=== PATIENT | female | born 1985 | race Caucasian/White ===

== ENCOUNTER 2016-08-13 18:14 | Emergency (ER) | payer BC, OTHER ==
[~2016-08-13] VITALS: Ht 177.8 cm; Wt 57.5 kg
[2016-08-13] MEDS ORDERED: ONDANSETRON 2 MG/ML (Z0FRAN) 2 ML VIAL IV ONE (18:30)
[2016-08-13] MEDS ORDERED: SODIUM CHLORIDE FLUSH 10 ML SYR IV PRN (18:30)
[2016-08-13] MEDS ORDERED: SODIUM CHLORIDE FLUSH 3 ML SYR IV ONE (18:30)
[2016-08-13 19:05] LABS: MEAN CORPUSCULAR HEMOGLOBIN 30.1 PG (26.0-34.0); MEAN CORPUSCULAR HGB CONC 34.9 g/dL (31.0-37.0); MEAN CORPUSCULAR VOLUME 86 FL (80-100); PLATELET COUNT 194 10^3uL (150-450); WHITE BLOOD COUNT 9.95 10^3uL (4.0-11.0)
[2016-08-13] MEDS ORDERED: KETOROLAC 30 MG/ML (TORADOL) 1 ML VIAL IV ONE (19:15)
[2016-08-13 19:17] LABS: ALBUMIN 5.3 g/dL (3.4-5.0); ALKALINE PHOSPHATASE 158 U/L (38-126); AMYLASE* 83 U/L (25-115); ANION GAP 21.6 MEQ/L (3-15); BUN/CREATININE RATIO 17 (10-20); CALCULATED IONIZED CALCIUM 3.8 mg/dL (3.8-4.6); LIPASE* 71 U/L (23-300); TOTAL PROTEIN 9.5 g/dL (6.4-8.5)
[2016-08-13 19:19] LABS: BAND NEUTROPHILS % 1 % (0-6); EOSINOPHILS % 0 % (0-4); LYMPHOCYTES # 0.7 #; MONOCYTES # 0.4 #; MONOCYTES % 4 % (3-11); RBC MORPH NORMAL (NORMAL); SEGMENTED NEUTROPHILS % 88 % (51-67); TOTAL CELLS COUNTED 100
[2016-08-13 20:10] LABS: CLARITY,URINE Clear; COLOR,URINE Red; GLUCOSE, URINE (UA) Negative (Negative); LEUKOCYTE ESTERASE ,URINE Negative (Negative)
[2016-08-13 20:15] LABS: BILIRUBIN,URINE 3+ (Negative)
[2016-08-13 20:17] LABS: RBC,URINE >100 /HPF; URINE CENTRIFUGED VOLUME <10mL Unspun
[2016-08-13 20:18] LABS: AMPHETAMINE SCREEN, URINE Negative (Negative); CANNABINOID SCREEN, URINE Negative (Negative); METHAMPHETAMINE SCREEN URINE S NEGATIVE (NEGATIVE); OPIATE SCREEN URINE Negative (Negative); PROPOXYPHENE STAT NEGATIVE (NEGATIVE)
[2016-08-13 20:45] VITALS: BP 94/65
== END 2016-08-13 21:08 | disposition home or self-care (01) ==
LOC: ED 18:16
DX: K52.9 Noninfective gastroenteritis and colitis, unspecified (principal); E86.0 Dehydration; R11.2 Nausea with vomiting, unspecified; R50.9 Fever, unspecified
CPT/HCPCS: 36415; 80053; 80307; 80320; 81003; 81015; 82150; 83690; 84703; 85025; 86140; 87088; 96361; 96374; 96375; 99284; J1885; J2405; J7030; 87147; 99281

== ENCOUNTER 2016-08-30 13:24 | Emergency (ER) | payer OTHER ==
[~2016-08-30] VITALS: Ht 177.8 cm; Wt 31.0 kg
[2016-08-30] MEDS ORDERED: diphenhydrAMINE 50 MG/ML INJ (BENADRYL) IV ONE (15:05)
[2016-08-30] MEDS ORDERED: ONDANSETRON 2 MG/ML (Z0FRAN) 2 ML VIAL IV ONE (15:05)
[2016-08-30 15:23] LABS: MEAN CORPUSCULAR HEMOGLOBIN 28.7 PG (26.0-34.0); MEAN CORPUSCULAR HGB CONC 33.5 g/dL (31.0-37.0); MEAN CORPUSCULAR VOLUME 86 FL (80-100); MEAN PLATELET VOLUME 10.7 FL (6.0-9.5); PLATELET COUNT 174 10^3uL (150-450); WHITE BLOOD COUNT 11.88 10^3uL (4.0-11.0)
[2016-08-30 15:31] LABS: ALBUMIN 5.7 g/dL (3.4-5.0); ANION GAP 24.9 MEQ/L (3-15); CALCULATED IONIZED CALCIUM 3.7 mg/dL (3.8-4.6); TOTAL PROTEIN 10.5 g/dL (6.4-8.5)
[2016-08-30 15:50] LABS: HCG,QUALITATIVE URINE Negative (Negative)
[2016-08-30 15:51] LABS: CLARITY,URINE Clear; COLOR,URINE Yellow; GLUCOSE, URINE (UA) Negative (Negative); LEUKOCYTE ESTERASE ,URINE Negative (Negative); PH,URINE 5.5 (5.0 - 8.0); UROBILINOGEN,URINE 0.2 mg/dL (0.2-1.0)
[2016-08-30 15:52] LABS: BILIRUBIN,URINE 1+ (Negative)
[2016-08-30 16:05] LABS: URINE CENTRIFUGED VOLUME <10mL Unspun
[2016-08-30 16:08] LABS: RBC,URINE 0-2 /HPF
[2016-08-30 16:25] LABS: BAND NEUTROPHILS % 7 % (0-6); EOSINOPHILS % 2 % (0-4); LYMPHOCYTES # 0.5 #; MONOCYTES # 0.3 #; MONOCYTES % 3 % (3-11); RBC MORPH NORMAL (NORMAL); SEGMENTED NEUTROPHILS % 84 % (51-67); TOTAL CELLS COUNTED 100
--- NOTE | 2016-08-30 19:10 | NUR ---
PT FEELS BETTER. READY TO BE DC'D. ICE WATER REQUESTED AND GIVEN
[2016-08-30 19:32] VITALS: BP 100/65
== END 2016-08-30 19:15 | disposition home or self-care (01) ==
LOC: ED 13:25
DX: R11.2 Nausea with vomiting, unspecified (principal); E86.9 Volume depletion, unspecified; R19.7 Diarrhea, unspecified; Z87.440 Personal history of urinary (tract) infections
CPT/HCPCS: 36415; 80053; 81003; 81015; 81025; 83690; 85025; 87088; 96361; 96374; 96375; 99283; J1200; J2405; J7030; 99282